=== PATIENT | male | born 1980 | race Hispanic/Latino ===

== ENCOUNTER 2024-07-22 06:49 | Emergency (ER) | payer BC ==
[~2024-07-22] VITALS: Ht 154.9 cm; Wt 74.8 kg
[2024-07-22 06:56] VITALS: TEMP 98.6
[2024-07-22 07:20] LABS: BASOPHILS % 0.7 % (0.0-1.0); EOSINOPHILS # (AUTO) 0.1 (0.0-0.4); EOSINOPHILS % 1.4 % (0.0-6.0); HEMATOCRIT 46.7 % (38.2-49.6); HEMOGLOBIN 15.1 g/dL (14.0-18.0); LYMPHOCYTES # (AUTO) 1.4 (1.0-3.2); MEAN CORPUSCULAR HEMOGLOBIN 26.9 pg (28-32); MEAN CORPUSCULAR HGB CONC 32.3 g/dL (31-35); MEAN CORPUSCULAR VOLUME 83.2 fL (81-99); MONOCYTES # (AUTO) 0.6 (0.2-0.8); MONOCYTES % 13.7 % (4.4-11.3); NEUTROPHILS # (AUTO) 2.2 (2.1-6.9); PLATELET COUNT 265 x10e3/uL (140-360); RED BLOOD COUNT 5.61 x10e6/uL (4.3-5.7); RED CELL DISTRIBUTION WIDTH 12.3 % (11.7-14.4); WHITE BLOOD COUNT 4.31 x10e3/uL (4.8-10.8)
[2024-07-22] MEDS: SODIUM CHLORIDE 0.9% 1000ML 1,000 ML IV STA ×2 (07:30→08:10)
[2024-07-22] MEDS: ONDANSETRON HCL INJ 2MG/ML 2ML 2 MG/ML VIAL IV STA (07:30)
[2024-07-22] MEDS: KETOROLAC TROMETHAMINE 30 MG/ML VIAL IV STA (07:31)
[2024-07-22 07:36] LABS: INR 0.76; PROTHROMBIN TIME 11.1 seconds (11.9-14.5)
[2024-07-22 07:37] LABS: PARTIAL THROMBOPLASTIN TIME 31.9 seconds (23.8-35.5)
[2024-07-22 07:39] LABS: ALBUMIN 4.2 g/dL (3.5-5.0); ALBUMIN/GLOBULIN RATIO 1.3 (0.8-2.0); ANION GAP 19.3 mmol/L (8-16); BILIRUBIN,TOTAL 0.3 mg/dL (0.2-1.2); CALCIUM 9.5 mg/dL (8.4-10.2); CREATININE, SERUM 1.06 mg/dL (0.72-1.25); MAGNESIUM 1.8 MG/DL (1.3-2.1); TOTAL PROTEIN 7.5 g/dL (6.5-8.1)
[2024-07-22] MEDS ORDERED: IOPAMIDOL 370 MG/ML 100 ML INFUS..BTL INJ ONE (07:43)
[2024-07-22 07:45] LABS: TROPONIN I 0.003 ng/mL (0-0.300)
[2024-07-22 07:57] LABS: POTASSIUM 3.3 mmol/L (3.5-5.1)
[2024-07-22] MEDS: INSULIN REGULAR, HUMAN 100 UNIT/1 ML IV ONE (08:12)
[2024-07-22 09:04] VITALS: PULSE 78; RESP 18; O2SAT 97
[2024-07-22] MEDS ORDERED: DICYCLOMINE HCL20 MG PO (09:11)
[2024-07-22] MEDS ORDERED: PANTOPRAZOLE SO40 MG PO (09:11)
[2024-07-22] MEDS ORDERED: ONDANSETRON ODT4 MG PO (09:11)
[2024-07-22 12:29] LABS: BILIRUBIN,URINE NEGATIVE (NEGATIVE); CLARITY,URINE CLEAR (CLEAR); COLOR,URINE YELLOW (YELLOW); GLUCOSE, URINE 500 (NEGATIVE); KETONES,URINE 2+ (NEGATIVE); LEUKOCYTE ESTERASE ,URINE NEGATIVE (NEGATIVE); NITRITE,URINE NEGATIVE (NEGATIVE); PH,URINE 6 (5 - 7); PROTEIN,URINE DIPSTICK NEGATIVE (NEGATIVE); URINE UROBILINOGEN 0.2 mg/dL (0.2 - 1)
[2024-07-22 12:37] LABS: BACTERIA,URINE FEW /HPF; EPITHELIAL CELLS,URINE FEW /LPF; RBC,URINE 0-5 /HPF (0-5); WBC,URINE (MAN) 0-5 /HPF (0-5)
== END 2024-07-22 09:25 | disposition home or self-care (01) ==
LOC: ER 07:01
DX: R10.11 Right upper quadrant pain (principal); K80.20 Calculus of gallbladder without cholecystitis without obstruction; R11.2 Nausea with vomiting, unspecified; E11.65 Type 2 diabetes mellitus with hyperglycemia; K76.0 Fatty (change of) liver, not elsewhere classified
CPT/HCPCS: 36415; 74177; 76705; 80053; 81001; 82550; 83690; 83735; 84484; 85025; 85610; 85730; 99284; J1885; J2405; J2470; J7030; Q9967

== ENCOUNTER 2024-07-31 05:03 | Emergency (ER) | payer BC ==
[~2024-07-31] VITALS: Ht 154.9 cm; Wt 74.8 kg
[~2024-07-31 05:03] MED LIST: DICYCLOMINE HCL20 MG PO; ONDANSETRON ODT4 MG PO; PANTOPRAZOLE SO40 MG PO
[2024-07-31 05:06] VITALS: TEMP 98.4
[2024-07-31 05:30] LABS: BASOPHILS % 0.6 % (0.0-1.0); EOSINOPHILS # (AUTO) 0.1 (0.0-0.4); HEMATOCRIT 47.8 % (38.2-49.6); HEMOGLOBIN 15.5 g/dL (14.0-18.0); LYMPHOCYTES % 39.3 % (18.0-39.1); MEAN CORPUSCULAR HEMOGLOBIN 27.2 pg (28-32); MEAN CORPUSCULAR HGB CONC 32.4 g/dL (31-35); MEAN CORPUSCULAR VOLUME 83.9 fL (81-99); MONOCYTES # (AUTO) 0.4 (0.2-0.8); MONOCYTES % 7.2 % (4.4-11.3); NEUTROPHILS # (AUTO) 2.7 (2.1-6.9); NEUTROPHILS % 51.5 % (38.7-80.0); PLATELET COUNT 323 x10e3/uL (140-360); RED CELL DISTRIBUTION WIDTH 11.7 % (11.7-14.4); WHITE BLOOD COUNT 5.16 x10e3/uL (4.8-10.8)
[2024-07-31 05:51] LABS: ALBUMIN 4.1 g/dL (3.5-5.0); ALBUMIN/GLOBULIN RATIO 1.1 (0.8-2.0); ANION GAP 23.5 mmol/L (8-16); BILIRUBIN,TOTAL 0.4 mg/dL (0.2-1.2); CALCIUM 9.9 mg/dL (8.4-10.2); CREATININE, SERUM 1.21 mg/dL (0.72-1.25); POTASSIUM 3.5 mmol/L (3.5-5.1)
[2024-07-31] MEDS ORDERED: IOPAMIDOL 370 MG/ML 100 ML INFUS..BTL INJ ONE (05:57)
[2024-07-31] MEDS: INSULIN REGULAR, HUMAN 100 UNIT/1 ML IV STA (06:06)
[2024-07-31] MEDS: SODIUM CHLORIDE 0.9% 1000ML 1,000 ML IV STA (06:06)
[2024-07-31] MEDS: POTASSIUM CHLORIDE 20MEQ/100ML 100 ML IV ONE (06:32)
[2024-07-31] MEDS: KCL 20 MEQ PACKET/ ORAL SOLN NG ONE (06:32)
[2024-07-31] MEDS: ONDANSETRON HCL INJ 2MG/ML 2ML 2 MG/ML VIAL IV STA (06:32)
[2024-07-31] MEDS: KCL 20 MEQ PACKET/ ORAL SOLN PO ONE (06:33)
[2024-07-31 08:00] VITALS: PULSE 75; RESP 16
[2024-07-31 08:26] LABS: ANION GAP 17.9 mmol/L (8-16); CALCIUM 9.6 mg/dL (8.4-10.2); CREATININE, SERUM 0.99 mg/dL (0.72-1.25); POTASSIUM 3.9 mmol/L (3.5-5.1)
[2024-07-31] MEDS: KETOROLAC TROMETHAMINE 30 MG/ML VIAL IV STA (08:26)
[2024-07-31 09:53] VITALS: BP 106/61; PULSE 89; RESP 16; TEMP 98; O2SAT 97
== END 2024-07-31 09:52 | disposition home or self-care (01) ==
LOC: ER 05:10
DX: R10.11 Right upper quadrant pain (principal); K80.50 Calculus of bile duct without cholangitis or cholecystitis without obstruction; E11.65 Type 2 diabetes mellitus with hyperglycemia
CPT/HCPCS: 36415; 74177; 80048; 80053; 82948; 83690; 85025; 99284; J1885; J2405; J3480; J7030; Q9967